=== PATIENT | male | born 1965 | race Caucasian/White ===

== ENCOUNTER 2021-04-21 23:40 | Emergency (ER) | payer SELFPAY ==
[2021-04-21] MEDS ORDERED: Sodium Chloride 0.9% 10 ML Syringe FLUSH PRN (23:46)
[2021-04-21] MEDS ORDERED: Sodium Chloride 0.9% 2.5 ML Syringe FLUSH PRN (23:46)
[2021-04-21] MEDS ORDERED: ceFAZolin 1 GM in Premix Bag 1 BAG IV ONE (23:47)
[2021-04-21] MEDS ORDERED: Diphtheria,Pertussis(Acell),Tetanus Vaccine 0.5 ML Syringe IM ONE (23:48)
--- NOTE | 2021-04-21 23:50 | EDM.PDOC ---
ED HPI GENERAL MEDICAL PROBLEM - General Stated Complaint: ANKLE INJURY Time Seen by Provider: 04/21/21 23:41 - History of Present Illness INITIAL COMMENTS - FREE TEXT/NARRATIVE: History of present illness: [] The patient says he twisted his ankle causing the fall. He injured his ankle. There is a deformity of the ankle with a laceration on the medial side. He also says at the time he dislocated his small finger of his left hand. The patient has been drinking alcohol right up until the time he arrived. He had solid food in the form of a potato 1 hour prior to arrival which would be about 20-40. Review of systems: As per history of present illness and below otherwise all systems reviewed and negative. Past medical history: As per history of present illness and as reviewed below otherwise noncontributory. Surgical history: As per history of present illness and as reviewed below otherwise noncontributory. Social history: No reported history of drug or alcohol abuse. Family history: As per history of present illness and as reviewed below otherwise noncontributory. Physical exam: Constitutional - well developed, well-nourished and in no acute distress HEENT - normocephalic, no evidence of trauma - external nose and mouth normal - no mass in neck and no JVD - mucosae moist EYES - full EOM, PERRL, no icterus - no evidence of inflammation, injection, or drainage Respiratory - no respiratory distress, equal bilateral expansion, lungs clear to auscultation and no abnormal lung sounds Cardiovascular - Regular Rhythm with S1 and S2 appreciated and no murmur, gallop or rub. GI - abdomen soft without distension or organomegaly - normal bowel sounds - no guard or rebound Musculoskeletal deformity of the left pinky or small finger with ulnar deviation at the MPJ. Deformity of the ankle with lateral displacement of the ankle. No gross deformity of long bones or joints - no tenderness, swelling or edema Neurologic - Alert and oriented times four - CN II-XII grossly intact - motor sensory and coordination symmetrically normal Psychiatric - appropriate mood and affect with normal thought content Hematologic - No petechiae or purpura - mucosa appropriate color and sclera not pale - normal nail bed color and refill Integument -the skin is broken over the medial malleolar area of the left ankle but it is not full-thickness and definitely does not communicate with the fracture or dislocation-no rash or evidence of trauma - normal turgor Diagnostics: [] Therapeutics: [] Impression: [] Plan: [] Definitive disposition and diagnosis as appropriate pending reevaluation and review of above. Left Ankle Pain Score (Numeric/FACES): 5 - Related Data Allergies Allergy/AdvReac Type Severity Reaction Status Date / Time No Known Allergies Allergy Verified 04/22/21 00:17 Home Meds: Home Meds . [No Known Home Meds] 04/22/21 [History] ED ROS GENERAL - Review of Systems Review Of Systems: Comprehensive ROS is negative, except as noted in HPI. ED EXAM, GENERAL - Physical Exam Exam: See Below Free Text/Narrative:: My physical exam is in the [facility] ED GENERAL MEDICAL PROCEDURES - Joint Reduction Left Ankle Technique: Traction/Counter Traction Number of Attempts: 1 Post-Reduction Imaging: Completely Reduced Joint Reduction Complications: No Progress/Comments: This dislocation is easily reduced because of the instability of the fractured fragments causing instability of the ankle. Abrasions were cleaned because they are not full-thickness and then bacitracin applied. Padding applied and I reduced the joint while we applied a splint. X-ray afterwards demonstrated adequate reduction in the neurovascular status including sensation movement and capillary refill were intact in the distal extremity after the splint. Course - Vital Signs Text/Narrative:: 00 44 patient has a fracture of the proximal end of the proximal phalanx of the small finger of the left hand at the radial edge which is an avulsion chip. The finger is with angulated toward the ulnar side. It is easily reduced and will be splinted to the other side with follow-up to the hand surgeon. The patient has a fracture of the lateral aspect and posterior malleolus of the distal tibia with fracture of the junction of the middle and lower third of the fibula on the left side. The ankle joint is displaced with the talus displaced laterally plate. It is easily reduced. Tib-fib reduction of the joint and then took an x-ray and it was posteriorly displaced. When I reduce the posterior displacement the mortise was not aligned. I discussed the case with Dr. Jerry the orthopedist in [place] at [facility] and he agreed to see the patient when he was n.p.o. and get a better alignment in cast. The surgery would not be done immediately and might not even be done today but he could help with the alignment. Neurovascular structures remained intact. The patient was transferred by POV with a splint to [facility] and told to be n.p.o. when he arrives. Last Recorded V/S: Last Vital Signs Temp 36.4 C 04/22/21 00:17 Pulse 78 04/22/21 00:17 Resp 12 04/22/21 00:17 BP 118/77 04/22/21 00:17 Pulse Ox 96 04/22/21 00:17 - Orders/Labs/Meds Orders: Active Orders 24 hr Category Date Time Status Vaccines to be Administered [RC] PER UNIT ROUTINE Care 04/21/21 23:48 Active Ankle 2V Lt [CR] Stat Exams 04/22/21 02:04 Taken Sodium Chloride 0.9% [Saline Flush] Med 04/21/21 23:46 Active 10 ml FLUSH ASDIRECTED PRN Sodium Chloride 0.9% [Saline Flush] Med 04/21/21 23:46 Active 2.5 ml FLUSH ASDIRECTED PRN DME for Discharge [COMM] Stat Oth 04/22/21 00:40 Ordered DME for Discharge [COMM] Stat Oth 04/22/21 00:42 Ordered DME for Discharge [COMM] Stat Oth 04/22/21 00:43 Ordered Saline Lock Insert [OM.PC] Stat Oth 04/21/21 23:46 Ordered Medication Orders Sodium Chloride (Sodium Chloride 0.9% 10 Ml Syringe) 10 ml FLUSH ASDIRECTED PRN PRN Reason: Keep Vein Open Sodium Chloride (Sodium Chloride 0.9% 2.5 Ml Syringe) 2.5 ml FLUSH ASDIRECTED PRN PRN Reason: Keep Vein Open Meds: Medications Generic Name Dose Route Start Last Admin Trade Name Freq PRN Reason Stop Dose Admin Sodium Chloride 10 ml 04/21/21 23:46 Sodium Chloride 0.9% 10 Ml Syringe FLUSH ASDIRECTED PRN Keep Vein Open Sodium Chloride 2.5 ml 04/21/21 23:46 Sodium Chloride 0.9% 2.5 Ml Syringe FLUSH ASDIRECTED PRN Keep Vein Open Discontinued Medications Generic Name Dose Route Start Last Admin Trade Name Freq PRN Reason Stop Dose Admin Cephalexin 500 mg 04/22/21 00:30 04/22/21 00:52 Cephalexin 500 Mg Cap PO 04/22/21 00:31 500 mg ONETIME ONE Administration Diphtheria/Tetanus/Acell Pertussis 0.5 ml 04/21/21 23:48 04/22/21 00:52 Diphtheria,Pertussis(Acell),Tetanus Vaccine 0.5 Ml Syringe IM 04/21/21 23:49 0.5 ml .ONCE ONE Administration Hydromorphone HCl 1 mg 04/22/21 02:04 Hydromorphone 1 Mg/Ml Syringe IVPUSH 04/22/21 02:05 ONETIME ONE Hydromorphone HCl 1 mg 04/22/21 02:10 04/22/21 02:16 Hydromorphone 1 Mg/Ml Syringe IM 04/22/21 02:11 1 mg ONETIME ONE Administration Cefazolin Sodium/Dextrose 1 gm 50 mls @ 100 mls/hr 04/21/21 23:47 04/22/21 02:02 / Premix IV 04/22/21 00:16 Not Given ONETIME ONE Ondansetron HCl 4 mg 04/22/21 02:04 Ondansetron 4 Mg/2 Ml Sdv IVPUSH 04/22/21 02:05 ONETIME ONE Ondansetron HCl 4 mg 04/22/21 02:08 04/22/21 02:15 Ondansetron 4 Mg Tab.Dis PO 04/22/21 02:09 4 mg ONETIME ONE Administration Departure - Departure Time of Disposition: 03:00 Disposition: Home, Self-Care 01 Condition: Good Clinical Impression: Fracture of distal end of left tibia, Fracture of fibula, left, closed, Fracture dislocation of left ankle, Fracture of proximal phalanx of left little finger, Bimalleolar fracture of ankle - Discharge Information Instructions: Displaced Bimalleolar Ankle Fracture Treated With ORIF, Care After Referrals: PCP,None [Primary Care Provider] - Additional Instructions: Please go to [facility] in [place]. Please make sure you have not eaten or drunk anything for at least more than 6 hours when you arrive. If there is any numbness pale color or severe pain in the toes you need to be seen in the emergency department immediately. The emergency physician in [place] at [facility] has agreed to see you and the orthopedist has agreed to assist in an adequate reduction but it can be facilitated if you are not eating or drinking anything for more than 6 hours because they could put you to sleep with a need to. [facility] [address] [place] [address] [facility] [address] [place] [address] The following information is given to patients seen in the emergency department who are being discharged to home. This information is to outline your options for follow-up care. We provide all patients seen in our emergency department with a follow-up referral. The need for follow-up, as well as the timing and circumstances, are variable depending upon the specifics of your emergency department visit. If you don't have a primary care physician on staff, we will provide you with a referral. We always advise you to contact your personal physician following an emergency department visit to inform them of the circumstance of the visit and for follow-up with them and/or the need for any referrals to a consulting specialist. The emergency department will also refer you to a specialist when appropriate. This referral assures that you have the opportunity for follow-up care with a specialist. All of these measure are taken in an effort to provide you with optimal care, which includes your follow-up. Under all circumstances we always encourage you to contact your private physician who remains a resource for coordinating your care. When calling for follow-up care, please make the office aware that this follow-up is from your recent emergency room visit. If for any reason you are refused follow-up, please contact the [facility] Emergency Department at and asked to speak to the emergency department charge nurse. Sepsis Event Note (ED) - Focused Exam Vital Signs: Vital Signs Temp Pulse Resp BP Pulse Ox 04/22/21 00:17 36.4 C 78 12 118/77 96 - My Orders Last 24 Hours: My Active Orders 04/21/21 23:46 Sodium Chloride 0.9% [Saline Flush] 10 ml FLUSH ASDIRECTED PRN Sodium Chloride 0.9% [Saline Flush] 2.5 ml FLUSH ASDIRECTED PRN Saline Lock Insert [OM.PC] Stat 04/21/21 23:48 Vaccines to be Administered [RC] PER UNIT ROUTINE 04/22/21 00:40 DME for Discharge [COMM] Stat 04/22/21 00:42 DME for Discharge [COMM] Stat 04/22/21 00:43 DME for Discharge [COMM] Stat 04/22/21 02:04 Ankle 2V Lt [CR] Stat - Assessment/Plan Last 24 Hours: My Active Orders 04/21/21 23:46 Sodium Chloride 0.9% [Saline Flush] 10 ml FLUSH ASDIRECTED PRN Sodium Chloride 0.9% [Saline Flush] 2.5 ml FLUSH ASDIRECTED PRN Saline Lock Insert [OM.PC] Stat 04/21/21 23:48 Vaccines to be Administered [RC] PER UNIT ROUTINE 04/22/21 00:40 DME for Discharge [COMM] Stat 04/22/21 00:42 DME for Discharge [COMM] Stat 04/22/21 00:43 DME for Discharge [COMM] Stat 04/22/21 02:04 Ankle 2V Lt [CR] Stat
--- NOTE | 2021-04-22 00:20 | CR ---
INDICATION: Pain and deformity following fall. COMPARISON: None available. FINDINGS: AP, lateral and oblique views of the left ankle were obtained for a total of three views. There is fracture-dislocation of the ankle. There is approximately 1.0 centimeters of lateral shift of the talus with approximately 30 degrees lateral angulation of the talus. The talus is shifted posteriorly by approximately 0.7 centimeters. There is an acute, comminuted, oblique fracture of the distal fibular shaft with approximately 15 degrees lateral angulation of the distal fracture fragment. There is prominent disruption of the tibial-fibular syndesmosis. There is an acute, vertical fracture of the posterior distal tibia with lateral displacement and posterior angulation of the minor fracture fragment. Multiple small osseous fragments are seen between the medial malleolus and talus. These are rounded and well corticated, and appear to be from previous soft tissue injury. No distinct medial malleolar fracture is present. There is no sign of a joint effusion. There is no sign of any radiopaque foreign body. IMPRESSION: Fracture-dislocation of the ankle with approximately 1.0 centimeters lateral and 0.7 centimeters posterior shift of the talus. Oblique, comminuted, mildly angulated fracture of the distal fibular shaft. Vertical, moderately displaced and mildly angulated fracture of the posterior distal tibia. Dictated by Juan Jacobs MD @ 04/22/2021 12:18:[address] Juan Jacobs @ Apr 22 2021 12:18AM
--- NOTE | 2021-04-22 00:22 | CR ---
HISTORY: Pain after fall COMPARISON: None available. FINDINGS: The left hand is examined with PA, lateral, and oblique views. There is a moderately displaced, avulsion fracture of the radial aspect of the base of the 5th proximal phalanx. There does appear to be good cortication of this fracture fragment, suggesting that this is an old, ununited fracture. Recommend correlation with the clinical exam. There is no sign of acute fracture or dislocation. The soft tissues are normal in appearance without sign of radio-opaque foreign body. No degenerative disease is seen. IMPRESSION: No definite acute fracture of the hand. Moderately displaced avulsion fracture of the radial aspect of the base of the 5th proximal phalanx, probably old. Dictated by Juan Jacobs MD @ 04/22/2021 12:21:[address] Juan Jacobs @ Apr 22 2021 12:21AM
[2021-04-22] MEDS ORDERED: Cephalexin 500 MG Cap PO ONE (00:30)
[2021-04-22] MEDS ORDERED: HYDROmorphone 1 MG/ML Syringe IVPUSH ONE (02:04)
[2021-04-22] MEDS ORDERED: Ondansetron 4 MG/2 ML SDV IVPUSH ONE (02:04)
[2021-04-22] MEDS ORDERED: Ondansetron 4 MG Tab.DIS PO ONE (02:08)
[2021-04-22] MEDS ORDERED: HYDROmorphone 1 MG/ML Syringe IM ONE (02:10)
--- NOTE | 2021-04-22 02:28 | CR ---
INDICATION: Post reduction. TECHNIQUE: AP and lateral view of the left tibia and fibula, 4 images. COMPARISON: Left ankle x-rays from 12 a.m. yesterday. FINDINGS: Persistent posterior dislocation of the talus with respect to the distal tibia. Distal fibular fracture with mild the dorsal angulation of the distal fragment with respect to the proximal fragment. IMPRESSION: Persistent dorsal dislocation of the talus with respect to the tibia. Dictated by Efraín Cancino MD @ 04/22/2021 2:26:[address] Efraín Cancino @ Apr 22 2021 2:26AM
--- NOTE | 2021-04-22 02:47 | CR ---
INDICATION: Re-evaluate post reduction. TECHNIQUE: AP and lateral views of the left ankle. COMPARISON: Left tib fib x-rays performed at 1:13 a.m. today. FINDINGS: Persistent posterolateral dislocation of the talus with respect to the tibia and associated angulation of the distal tibial shaft fracture. IMPRESSION: Persistent dislocation. Dictated by Efraín Cancino MD @ 04/22/2021 2:45:[address] Efraín Cancino @ Apr 22 2021 2:45AM
== END 2021-04-22 03:05 ==
LOC: MW.ED 23:40
DX: S62.617A Displaced fracture of proximal phalanx of left little finger, initial encounter for closed fracture (principal); S82.842A Displaced bimalleolar fracture of left lower leg, initial encounter for closed fracture; S82.832A Other fracture of upper and lower end of left fibula, initial encounter for closed fracture; S93.06XA Dislocation of unspecified ankle joint, initial encounter; Z23 Encounter for immunization; X50.1XXA Overexertion from prolonged static or awkward postures, initial encounter; W18.39XA Other fall on same level, initial encounter
CPT/HCPCS: 26720; 27840; 73130; 73590; 73600; 73610; 90471; 90715; 96372; 99283; A9270; J1170